=== PATIENT | male | born 1975 | race Caucasian/White ===

== ENCOUNTER 2017-01-29 09:31 | Outpatient (CLI) | payer BC ==
[2017-01-30 11:17] LABS: TEST RESULT REPORT (())
== END 2017-01-29 09:32 | disposition home or self-care (01) ==
LOC: LAB.WCP 09:31
PROVIDERS: ATTEND Family Medicine
DX: Z11.3 Encounter for screening for infections with a predominantly sexual mode of transmission (principal)
CPT/HCPCS: 36415; 81599; 86592; 86695; 86696; 86704; 86803; 87389

== ENCOUNTER 2017-01-29 09:34 | Outpatient (CLI) | payer BC | END 2017-01-29 09:35 | disposition home or self-care (01) | LOC: LAB.R 09:34 | PROVIDERS: ATTEND Family Medicine | DX: Z11.3 Encounter for screening for infections with a predominantly sexual mode of transmission (principal) | CPT/HCPCS: 87491; 87591 ==

== ENCOUNTER 2018-06-15 09:33 | Outpatient (CLI) | payer OTHER ==
--- NOTE | 2018-06-15 10:38 | XRAY Report ---
Reason: DYSPHAGIA Procedure Date: 06/15/2018 Accession Number: [id number] / [id number] Procedure: [place] - Esophogram CPT Code: FULL RESULT: EXAM: BARIUM ESOPHAGRAM EXAM DATE: 06/15/2018 10:13 AM. CLINICAL HISTORY: Dysphagia. COMPARISONS: None. TECHNIQUE: Routine double contrast esophagram. Fluoroscopy Time: 2 minutes 37 seconds. Number of Images: 19. FINDINGS: Swallowing Mechanism: Normal. No tracheal aspiration or penetration. Esophageal Motility: Intermittently, minimal disorganization of the otherwise normal stripping wave. Mucosa: Normal. No ulcerations or masses. Gastroesophageal Junction: Normal. No hernia, stricture, or significant reflux. Other: None. IMPRESSION: Minimal disorganization of the stripping wave. Otherwise, normal examination. [facility]
[2018-06-15] MEDS ORDERED: BARIUM SULFATE 135 ML BOTTLE PO ONE (11:14)
[2018-06-15] MEDS ORDERED: BARIUM SULFATE 176 GM BOTTLE PO ONE (11:14)
[2018-06-15] MEDS ORDERED: SIMETHICONE/SOD BICARB/CIT AC 1 EACH PACKET PO ONE (11:14)
== END 2018-06-15 09:34 | disposition home or self-care (01) ==
LOC: DI 09:33
PROVIDERS: ATTEND Family Medicine
DX: R13.10 Dysphagia, unspecified (principal)
CPT/HCPCS: 74220; A9270